=== PATIENT | female | born 1960 | race Caucasian/White ===

== ENCOUNTER → 2020-04-14 | Outpatient (CLI) | payer OTHER ==
--- NOTE | 2020-04-15 07:19 | XR ---
EXAM TYPE: LUMBAR SPINE X RAY SERIES COMPARISON: NONE HISTORY: Pain TECHNIQUE: 4 views are submitted. FINDINGS: Alignment is anatomic. The pedicles are intact. The transverse processes are intact. There is no s pondylolysis or spondylolisthesis. Hypertrophic and degenerative disc disease seen at all levels wit h severe degenerative disc disease anterior hypertrophic spurring. Vascular calcifications noted. Mul tilevel foraminal encroachment suspected. Surgical clips in the gallbladder fossa. IMPRESSION: 1. Multilevel severe degenerative disc disease and foraminal encroachment suspected. Correlate with M RI as clinically warranted.
== END | disposition home or self-care (01) ==
LOC: RADXRMAIN 15:48
PROVIDERS: ATTEND Nurse Practitioner Women's Health
DX: M54.5 Low back pain (principal)
CPT/HCPCS: 72110

== ENCOUNTER → 2023-12-29 | Outpatient (CLI) | payer OTHER ==
--- NOTE | 2023-12-29 23:12 | XR ---
PROCEDURE: XR Hip Complete RT - 2V DATE AND TIME: 12/29/2023 4:30 PM CLINICAL INDICATION: [facility]; [id number] F WITH RT HIP PAIN TECHNIQUE: Department protocol COMPARISON: None FINDINGS / IMPRESSION: No acute soft tissue findings. No acute fracture/malalignment. No focal osseous lesions. Mild right hip osteoarthrosis changes.
== END | disposition home or self-care (01) ==
LOC: RADXRMAIN 16:18
PROVIDERS: ATTEND Family Medicine
DX: M16.11 Unilateral primary osteoarthritis, right hip (principal)
CPT/HCPCS: 73502